=== PATIENT | male | born 1960 ===

== ENCOUNTER 2017-06-25 08:46 | Emergency (ER) | payer MEDICAID ==
[2017-06-25 09:18] VITALS: BP 143/81; PULSE 98; RESP 18; TEMP 98.5; O2SAT 100
--- NOTE | 2017-06-25 09:45 | ED PDOC ---
Lower Extremity Pain/Injury Time Seen by Provider: 06/25/17 09:17 Chief Complaint (Nursing): Lower Extremity Problem/Injury History Per: Patient History/Exam Limitations: no limitations Onset/Duration Of Symptoms: Days (x 10 days) Current Symptoms Are (Timing): Still Present Additional Complaint(s): Don is a 56 year old male who presents to the emergency department complaining of left knee pain for 10 days. Patient states he took Tylenol yesterday with some relief. Denies trauma, injury, weakness, numbness, calf pain or calf swelling. No other medical problems at this time. PMD: No Family Provider Past Medical History Reviewed: Historical Data, Nursing Documentation, Vital Signs Vital Signs: Last Vital Signs Temp 98.5 F 06/25/17 09:12 Pulse 98 H 06/25/17 09:12 Resp 18 06/25/17 09:12 BP 143/81 06/25/17 09:12 Pulse Ox 100 06/25/17 09:12 - Medical History PMH: No Chronic Diseases - Surgical History Surgical History: No Surg Hx - Family History Family History: States: Unknown Family Hx - Social History Current smoker - smoking cessation education provided: No Alcohol: None Drugs: Denies - Home Medications Home Medications: Ambulatory Orders Medication Instructions Recorded Naproxen [Naprosyn] 500 mg PO BID PRN #15 tablet 06/25/17 - Allergies Allergies/Adverse Reactions: Allergies Allergy/AdvReac Type Severity Reaction Status Date / Time No Known Allergies Allergy Verified 06/25/17 09:12 Review of Systems ROS Statement: Except As Marked, All Systems Reviewed And Found Negative Musculoskeletal: Positive for: Other (Left knee pain). Negative for: Leg Pain Neurological: Negative for: Weakness, Numbness Physical Exam - Reviewed Nursing Documentation Reviewed: Yes Vital Signs Reviewed: Yes - Physical Exam Appears: Positive for: Well, Non-toxic Skin: Positive for: Normal Color, Warm, Dry Pulses-Dorsalis Pedis (L): 2+ Extremity: Positive for: Tenderness (Generalized anterior left knee), Capillary Refill (<2 sec), Other (No crepitus, no lesions, no erythema, no edema). Negative for: Normal ROM ((+): Decreased ROM secondary to pain), Pedal Edema, Calf Tenderness, Deformity, Swelling Neurologic/Psych: Positive for: Alert, Oriented, Other (Sensations intact). Negative for: Motor/Sensory Deficits - ECG O2 Sat by Pulse Oximetry: 100 (RA) Pulse Ox Interpretation: Normal Medical Decision Making Medical Decision Making: Time: 09:31 Plan: - Left Knee X-Ray - Motrin Tab 600 mg PO STAT Scribe Attestation: Documented by Liam Pino, acting as a scribe for Sandrine Dasilva MD Provider Scribe Attestation: All medical record entries made by the Scribe were at my direction and personally dictated by me. I have reviewed the chart and agree that the record accurately reflects my personal performance of the history, physical exam, medical decision making, and the department course for this patient. I have also personally directed, reviewed, and agree with the discharge instructions and disposition. Disposition - Clinical Impression Clinical Impression: Arthralgia - Disposition Referrals: [facility] [place] [Outside] Disposition: Routine/Home Disposition Time: 10:22 Condition: STABLE Prescriptions: Naproxen [Naprosyn] 500 mg PO BID PRN #15 tablet PRN Reason: Pain, Moderate (4-7) Instructions: Arthralgia (ED) Forms: [employer] (Uzbek) Print Language: KINYARWANDA
--- NOTE | 2017-06-26 07:58 | RAD ---
PROCEDURE: Left Knee Radiographs. HISTORY: Pain. COMPARISON: None. FINDINGS: BONES: No acute fracture or destructive bony lesion identified. JOINTS: Mild cortical sclerosis is appreciate the patellofemoral joint and joint space narrowing is noted at the medial femorotibial joint compatible degenerative joint disease. JOINT EFFUSION: None. OTHER FINDINGS: None. IMPRESSION: Limited degenerative joint disease. No acute fracture or dislocation appreciated.
== END 2017-06-25 10:43 | disposition home or self-care (01) ==
LOC: H.ER 08:46
DX: M17.12 Unilateral primary osteoarthritis, left knee (principal)